=== PATIENT | male | born 1985 | race Caucasian/White ===

== ENCOUNTER → 2018-06-07 10:51 | Outpatient (CLI) | payer MEDICARE, MEDICAID, SELFPAY | PROVIDERS: Family Provider Family Medicine; PCP Family Medicine; Visit Provider Family Medicine | DX: R22.9 Localized swelling, mass and lump, unspecified (principal); M79.672 Pain in left foot | CPT/HCPCS: 73630; 76705 ==

== ENCOUNTER 2018-08-01 12:00 | Outpatient (RCR) | payer MEDICARE, MEDICAID, SELFPAY ==
--- NOTE | 2018-06-23 16:06 | HP.PTEVAL_ITS ---
Patient's Visit Information SAMANTHA MARQUEZ is a 32 year old M referred to Physical Therapy by Gonzalo Simmons with a diagnosis of SURAL NEURITIS/NEUROPRAXIA. Date of Evaluation: 06/23/18 Physical Therapist: Markel Andujar, PT, - Visit Plan Frequency: 2x /Week Duration: 4 Weeks Plan: US,IONTOPHORESIS WITH DEXAMETHONE,CP,STRENGTHING ANKLE. . Patient is legally blind - Subjective Subjective: This 32 y/o male presenst to physical therapy with Sural neuritis / neuropraxia. Patient lateral foot with main area posterior lateral malleoli. These symptoms have been going May 09 twisted ankle flexed toes. Seen Family DR brush x-rays recommended Dr Simmons . Dr Simmons recommended PT and anti- inflammatory co. mpound. Patient symptoms walking with quick turning ,running and walking/running uneven surfaces. Symptoms decribed burning/sharp pain. C/O parathesia/tingling lateral foot.Patient has overcounter orthotics.PRECAUTION: legally blind. SOCAIL: single. HOBBIES: running. 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 NEURO: C/O parathesia /tingling lateral ,light touch intact. PALPATION: mild tender posterior malleoli. GAIT: normal jayshree pes planus calcaneal valgus decrease stance left leg. AROM: DF degrees,PF 65 degrees,IN 40 degrees,EV 10 degrees. MMT: ankle 5/5 grossly - Goals Goal 1:: Patient to be Indendant with HEP Goal Time Frame: 4-6 Weeks Goal 2:: Patient to decrease symptoms lateral foot by 50% or greater to improve function and running Goal Time Frame: 4-6 Weeks Goal 3:: Patient be able to perform ADL'S and job demands withpout symptom's Goal Time Frame: 4-6 Weeks Goal 4:: Patient improve LFES score by 5-10 ponus to improve function/running Goal Time Frame: 4-6 Weeks Goal 5:: Patient able to gradually return to running Goal Time Frame: 4-6 Weeks - Rehabilitation Potential Physical Therapy Diagnosis: This patient hyperflexed foot into plantarflexion caused pain lateral foot with burning/parathesia unable to run per Dr Simmons impression sural nerve inflammed Rehabilitation Potential: Good - Anticipated Interventions Patient/Client Instruction: Educate patient on: Condition, Plan of Care For the Purpose of:: To decrease pain, To decrease swelling/inflammation, To improve nutrient delivery to tissue, To increase oxygenation perfusion, To improve muscle performance and motor function, To increase tolerance to activity /condition/position, To improve ability of physical actions for home/community/ work/leisure, To improve health of tissue, To decrease soft tissue restriction Other: RUNNING Therapeutic Exercise to Include: Strength training, Flexibilty training, Active ROM For the Purpose of:: To decrease pain, To decrease swelling/inflammation, To improve muscle performance and motor function, To increase tolerance to activity /condition/position, To improve ability of physical actions for home/community/ work/leisure, To improve health of tissue, To decrease soft tissue restriction, To increase flexibility/ROM, To improve ability to perform tasks related to life management Iontophoresis (with Dexamethozone, with Acetic acid): Yes - WITH DEXAMETHSONE Cryotherapy (ice pack, ice massage): Yes Thermo therapy (hot pack): Yes Ultrasound (thermal/non thermal): Yes For the Purpose of:: To decrease pain, To decrease swelling/inflammation, To increase ROM, To improve health of tissue, To decrease soft tissue restriction Thank you for the opportunity to evaluate your patient. For Medicare and Medicare HMO plans, please review the plan of care and approve it. It will need to be FAXED BACK to us at [phone] for Medicare purposes. Please let me know if there are questions or concerns regarding this plan of care. Physician Signature: Date:
--- NOTE | 2018-10-10 11:31 | HP.PTDCSUM ---
HP - PT D/C Summary It has been my pleasure to treat SAMANTHA MARQUEZ under orders from Gonzalo Simmons, for the diagnosis of SURAL NEURITIS/NEUROPRAXIA for a total of 9 visit(s). Discharge Date: Please see the following information for a summary of their discharge status. - Subjective Subjective: Doing okay walked .. - Pain Left Foot Pain Intensity (Out of 10): 1 - Overall Improvement % Improvement: 50 - Objective Objective/Function: FANY TX WELL ,, NO PAIN WITH PALAPATION. ROM: WNL ALL PLANES -DF 5 DEGREES,PF 65 DEGREES,EV 5 DEGRREES,IN 40 DEGREE. MMT: 4/5 ALL PLANES. PROM: METETARSELS SORENES WITH FLEXION. AMULATES WITH BOOT - Goals Goal 1:: Patient to be Indendant with HEP Goal Progress: Progressing Goal 2:: Patient to decrease symptoms lateral foot by 50% or greater to improve function and running Goal Progress: Progressing Goal 3:: Patient be able to perform ADL'S and job demands withpout symptom's Goal Progress: Progressing Goal 4:: Patient improve LFES score by 5-10 ponus to improve function/running Goal Progress: Progressing Goal 5:: Patient able to gradually return to running Goal Progress: Progressing - Plan Plan: RTD - D/C Information If there are questions or concerns regarding this patient's physical therapy, please feel free to call me at [phone]. Thank you for the referral of this patient. Sincerely, Markel Andujar, PT, Cert MDT, OCS
== END 2018-08-01 19:00 | disposition home or self-care (01) ==
LOC: PT 12:00
PROVIDERS: Family Provider Family Medicine; PCP Family Medicine; Visit Provider Podiatrist
DX: G58.8 Other specified mononeuropathies (principal); T14.8XXD Other injury of unspecified body region, subsequent encounter
CPT/HCPCS: 97033; 97035; 97161

== ENCOUNTER → 2018-08-17 17:20 | Outpatient (CLI) | payer MEDICARE, MEDICAID, SELFPAY | PROVIDERS: Family Provider Family Medicine; PCP Family Medicine; Referring Provider Podiatrist; Visit Provider Podiatrist | DX: M77.52 Other enthesopathy of left foot and ankle (principal); M77.42 Metatarsalgia, left foot; S93.402A Sprain of unspecified ligament of left ankle, initial encounter ==

== ENCOUNTER → 2018-08-17 17:23 | Outpatient (CLI) | payer MEDICARE, MEDICAID, SELFPAY ==
--- NOTE | 2018-08-17 17:29 | MRI_ITS ---
STUDY: MRI LEFT FOREFOOT WITHOUT CONTRAST REASON FOR EXAM: Male, 32 years old. Pain at the distal metatarsals. TECHNIQUE: Standardized fat and water weighted pulse sequences were obtained in all 3 orthogonal planes. COMPARISON: X-ray June 07, 2018 FINDINGS: Normal metatarsophalangeal joint of the hallux. Normal tibial and fibular sesamoids, with normal sesamoids-first metatarsal articulations. Normal interphalangeal joint of the hallux. Normal proximal and distal phalanges of the great toe. Normal medial and lateral heads of the flexor hallucis brevis tendons. Normal flexor and extensor hallucis longus tendons. Normal second through fifth metatarsophalangeal (MTP) joints. Normal interphalangeal joints of the second through fifth toes. Normal proximal, middle and distal phalanges of the second through fifth toes. Normal first through fourth intermetatarsal spaces. Normal flexor and extensor tendons of the second through fifth toes. Normal visualized metatarsi. Normal intrinsic muscles of the forefoot. There is no demonstrated soft tissue abnormality. There is no demonstrated fracture. MRI/Lower Ext/No Jt/w/o IMPRESSION: Normal unenhanced MRI of the forefoot. No fracture or periosteal reaction. Electronically Signed: Nimesh Guo MD at 20:11 EDT , Service support ,
--- NOTE | 2018-08-17 17:29 | MRI_ITS ---
STUDY: MRI LEFT ANKLE WITHOUT CONTRAST REASON FOR EXAM: Male, 32 years old. Pain. Injury with sprain 3 months ago. TECHNIQUE: Standardized fat and water weighted pulse sequences were obtained in all 3 orthogonal planes. COMPARISON: None. FINDINGS: Normal subcutis adipose space. There is thickening of the distal posterior tibialis tendon consistent with a tendinosis, but without a tendon tear. Normal flexor digitorum longus tendon. Normal flexor hallucis longus tendon. Normal peroneus longus and brevis tendons. Normal tibialis anterior tendon. Normal extensor hallucis longus tendon. Normal extensor digitorum longus tendons. Normal Achilles tendon and teno-osseous insertion. Normal plantar fascia. Normal plantar calcaneal tubercles. Normal intrinsic muscles of the rearfoot. Normal distal tibiofibular syndesmotic ligamentous complex. Normal lateral ligamentous complex. Normal subtalar ligaments and sinus tarsi. Normal deltoid ligamentous complexes. Normal plantar calcaneonavicular (spring) ligament. There is a joint effusion of the tibiotalar articulation with capsular distension. Normal talar dome. Normal subtalar articulations. Normal talonavicular articulation. Normal calcaneocuboid articulation. Normal navicular-cuneiform articulations. MRI/Lower Ext Joint Only (Routine) IMPRESSION: No fracture. No osteochondral injury of the talar dome. Insertional tendinosis of the tibialis posterior. Electronically Signed: Nimesh Guo MD at 20:16 EDT , Service support ,
== END ==
PROVIDERS: Family Provider Family Medicine; PCP Family Medicine; Referring Provider Podiatrist; Visit Provider Podiatrist
DX: M76.822 Posterior tibial tendinitis, left leg (principal); M77.42 Metatarsalgia, left foot; S93.402A Sprain of unspecified ligament of left ankle, initial encounter; X58.XXXA Exposure to other specified factors, initial encounter
CPT/HCPCS: 73718; 73721

== ENCOUNTER → 2018-12-05 08:08 | Outpatient (CLI) | payer MEDICARE, MEDICAID, SELFPAY ==
[2018-12-05 08:04] VITALS: BMI 27.3
--- NOTE | 2018-12-05 08:10 | RAD_ITS ---
STUDY: X-RAY - LEFT SHOULDER REASON FOR EXAM: Male, 33 years old. Shoulder pain. TECHNIQUE: 4 view(s) of the shoulder. COMPARISON: None. FINDINGS: Normal glenohumeral articulation. Normal acromioclavicular joint. Normal acromion. Normal humeral head and visualized proximal humerus. The soft tissue structures are unremarkable. Normal visualized pulmonary apex. RAD/Shoulder min 2 Views IMPRESSION: Normal x-ray examination of the shoulder. Electronically Signed: Jasper Gonzalez MD at 15:42 EST , Service support ,
== END ==
PROVIDERS: Family Provider Family Medicine; PCP Family Medicine; Referring Provider Orthopaedic Surgery; Visit Provider Orthopaedic Surgery
DX: M25.512 Pain in left shoulder (principal)
CPT/HCPCS: 73030

== ENCOUNTER → 2019-11-02 14:47 | Outpatient (CLI) | payer MEDICARE, MEDICAID, SELFPAY ==
[2018-12-05 08:04] VITALS: BMI 27.3
[2019-11-02 18:16] LABS: Chlamydia Trachomatis by PCR Negative (Negative); Neisserai gonorrhoeae by PCR Negative (Negative); Probe Check PASS; Sample Adequacy Control PASS; Specimen Processing Control PASS
== END ==
PROVIDERS: Family Provider Family Medicine; PCP Family Medicine; Visit Provider Family Medicine
DX: Z20.9 Contact with and (suspected) exposure to unspecified communicable disease (principal)
CPT/HCPCS: 87491; 87591

== ENCOUNTER → 2022-08-28 | Outpatient (CLI) | payer MEDICARE, MEDICAID, SELFPAY ==
[2022-08-28 12:40] LABS: Absolute Lymphocyte Count 1.37 X10^3/uL (0.83-4.51); Absolute Neutrophil Count 3.2 X10^3/uL (2.0-7.7); Basophil# 0.09 X10^3/uL; Basophil% 1.6 % (0-1); Eosinophil# 0.18 X10^3/uL; Eosinophils% 3.2 % (0-5); Hematocrit 45.5 % (40-54); Hemoglobin 15.8 g/dL (13.0-16.5); Lymphocyte # 1.37 X10^3/ul (0.83-4.51); Lymphocyte % 24.7 % (19-41); Mean Corp Hgb Conc 34.7 g/dL (32-36); Mean Corpuscular Hgb 28.4 pg (27.0-32.0); Mean Corpuscular Volume 81.8 fL (80-94); Monocyte# 0.65 X10^3/uL; Monocyte% 11.7 % (0-10); NRBC Flagged by Analyzer 0 % (0-5); Neutrophil # 3.23 X10^3/uL (2.7-7.7); Neutrophil % 58.4 % (47-70); Platelet Count 244 K/mm3 (150-450); RBC Distribution Width CV 12.1 % (11.6-14.6); RBC Distribution Width SD 36.3 fl (35.1-43.9); Red Blood Count 5.56 M/mm3 (4.6-6.2); White Blood Count 5.5 K/mm3 (4.4-11.0)
[2022-08-28 12:54] LABS: ALB/GLOB Ratio 1.2 RATIO (0.9-2.4); AST(SGOT) 20 U/L (15-37); Alanine Aminotransfer ALT/SGPT 43 U/L (16-61); Albumin, Serum 3.8 g/dL (3.2-5.0); Alkaline Phosphatase 64 U/L (45-117); Anion Gap 6 (5-15); BUN 13 mg/dL (7-18); BUN/Creat Ratio 12.9 RATIO (10-20); Calcium,Total 9.1 mg/dL (8.5-10.1); Chloride 102 mmol/L (98-107); Cholesterol 162 mg/dL (200); Creatinine, Serum 1.01 mg/dL (0.70-1.30); EST Glomerular Filtration Rate 88 mL/min (>60); Est Glom Filt Rate - Afr Amer 106 mL/min (>60); Globulin 3.3 g/dL (2.2-4.2); Glucose 91 mg/dL (74-106); High Density Lipoprotein 52 mg/dL; Potassium 3.9 mmol/L (3.5-5.1); Protein, Total 7.1 g/dL (6.4-8.2); Sodium Level 136 mmol/L (136-145); Triglycerides 79 mg/dL; Very Low Density Lipoprotein 16 mg/dL (5-40)
== END | disposition home or self-care (01) ==
LOC: BFHLAB 08:06
PROVIDERS: PCP Family Medicine; Visit Provider Family Medicine
DX: Z00.01 Encounter for general adult medical examination with abnormal findings (principal)

== ENCOUNTER → 2022-09-25 | Outpatient (CLI) | payer MEDICARE, MEDICAID, SELFPAY ==
[2022-09-25 12:39] LABS: Absolute Lymphocyte Count 1.78 X10^3/uL (0.83-4.51); Absolute Neutrophil Count 3.4 X10^3/uL (2.0-7.7); Basophil# 0.07 X10^3/uL; Basophil% 1.1 % (0-1); Eosinophils% 3.2 % (0-5); Hematocrit 48.2 % (40-54); Hemoglobin 16.1 g/dL (13.0-16.5); Lymphocyte # 1.78 X10^3/ul (0.83-4.51); Lymphocyte % 28.6 % (19-41); Mean Corp Hgb Conc 33.4 g/dL (32-36); Mean Corpuscular Hgb 27.4 pg (27.0-32.0); Mean Corpuscular Volume 82.1 fL (80-94); Mean Platelet Vol. 12.4 fl (6.2-12.0); Monocyte# 0.79 X10^3/uL; Monocyte% 12.7 % (0-10); NRBC Flagged by Analyzer 0 % (0-5); Neutrophil # 3.37 X10^3/uL (2.7-7.7); Neutrophil % 54.1 % (47-70); Platelet Count 270 K/mm3 (150-450); RBC Distribution Width CV 12.9 % (11.6-14.6); RBC Distribution Width SD 38.2 fl (35.1-43.9); Red Blood Count 5.87 M/mm3 (4.6-6.2); White Blood Count 6.2 K/mm3 (4.4-11.0)
[2022-09-25 12:54] LABS: ALB/GLOB Ratio 1.3 RATIO (0.9-2.4); AST(SGOT) 13 U/L (15-37); Alanine Aminotransfer ALT/SGPT 33 U/L (16-61); Albumin, Serum 4.2 g/dL (3.2-5.0); Alkaline Phosphatase 61 U/L (45-117); Anion Gap 7 (5-15); BUN 13 mg/dL (7-18); BUN/Creat Ratio 11.9 RATIO (10-20); Calcium,Total 9.1 mg/dL (8.5-10.1); Chloride 104 mmol/L (98-107); Cholesterol 191 mg/dL (200); Creatinine, Serum 1.09 mg/dL (0.70-1.30); EST Glomerular Filtration Rate 80 mL/min (>60); Est Glom Filt Rate - Afr Amer 97 mL/min (>60); Globulin 3.2 g/dL (2.2-4.2); Glucose 103 mg/dL (74-106); High Density Lipoprotein 59 mg/dL; Potassium 3.9 mmol/L (3.5-5.1); Protein, Total 7.4 g/dL (6.4-8.2); Sodium Level 139 mmol/L (136-145); Triglycerides 90 mg/dL; Very Low Density Lipoprotein 18 mg/dL (5-40)
== END | disposition home or self-care (01) ==
LOC: BFHLAB 08:07
PROVIDERS: PCP Family Medicine; Visit Provider Family Medicine
DX: Z00.01 Encounter for general adult medical examination with abnormal findings (principal)
CPT/HCPCS: 36415; 80053; 80061; 85025

== ENCOUNTER → 2022-10-15 | Outpatient (CLI) | payer MEDICARE, MEDICAID, SELFPAY ==
--- NOTE | 2022-10-15 | LIP_PTH ---
PATIENT: SAMANTHA MARQUEZ LOC: [facility] U#:[id number] AGE/SX: 37/M ROOM: RE10/15/[address]: Dr. Angus Morrow MD : 1985 BED: DIS: 10/15/2022 SPEC #: [id number] RECD: 10/15/22 13:10 STATUS: GISSELLE NORMA #: [id number] FATMATA: 10/15/22 00:[address]: Angus Morrow DEPT: SURGICAL PATHOLOGY RECD BY: David Strickland ENTERED: 10/15/22 13:11 SP TYPE: LIPOMA OTHR DR: Dr. Lora Pina MD Tissues: A - Soft tissues, NOS B - Soft tissues, NOS C - Soft tissues, NOS Procedures: Surgery Specimen Level III HEADER OPERATION: Excision lipomas, right lower back, left flank/mid abdomen, left forearm PRE-OP DIAGNOSIS: Lipomas TISSUE SUBMITTED: A ? Right lower back tissue, B ? Left flank/mid abdomen tissue, C ? Left forearm tissue MICROSCOPIC DIAGNOSIS A. Right lower back tissue, excisional biopsy: Mature adipose tissue, consistent with lipoma. B. Left flank/mid abdomen tissue, excisional biopsy: Mature adipose tissue, consistent with lipoma. C. Left forearm tissue, excisional biopsy: Mature adipose tissue, consistent with lipoma. LEXA:aylin 10/16/2022 MICROSCOPIC DESCRIPTION Slides are reviewed. GROSS DESCRIPTION A - Received in fixative is one container labeled with the patient's name and designated right lower back tissue. The specimen consists of multiple irregular fragments of yellow adipose tissue that in aggregate measure 4 x 3.5 x 1 cm. Sections reveal yellow adipose cut surfaces without area of hemorrhage, necrosis or cystic degeneration. Cloth Dyer sections are submitted in one cassette. B - Received in fixative is one container labeled with the patient's name and designated left abdomen/ flank tissue. The specimen consists of an irregular piece of yellow adipose tissue measuring 2.5 x 1.5 x 1.2 cm. Sections reveal yellow adipose cut surfaces without area of hemorrhage, necrosis or cystic degeneration. The entire specimen is submitted in one cassette. C - Received in fixative is one container labeled with the patient's name and designated left forearm tissue. The specimen consists of a lobulated piece of yellow adipose tissue measuring 1.7 x 1.5 x 0.5 cm. The specimen is bisected and reveal yellow adipose cut surfaces without area of hemorrhage, necrosis or cystic degeneration. The entire specimen is submitted in one cassette. / LEXA:aylin 10/15/2022 TC:1 CPT: 31934 x3
== END | disposition home or self-care (01) ==
LOC: LABSPEC 11:59
PROVIDERS: PCP Family Medicine; Visit Provider Surgery
DX: D17.39 Benign lipomatous neoplasm of skin and subcutaneous tissue of other sites (principal)
CPT/HCPCS: 88304